=== PATIENT | female | born 2000 | race Caucasian/White ===

== ENCOUNTER 2025-06-26 18:54 | Emergency (ER) | payer MEDICAID ==
[~2025-06-26] VITALS: Ht 162.6 cm; Wt 63.0 kg
[2025-06-26 18:59] VITALS: TEMP 36.7; O2SAT 98
[2025-06-26] MEDS ORDERED: PSEU120T56 MT (23:05)
[2025-06-26] MEDS ORDERED: ISOP30DR11 LEFT EAR (23:05)
[2025-06-26] MEDS ORDERED: ALBU18HF2 IH (23:05)
[2025-06-26 23:12] VITALS: O2SAT 97
[2025-06-26 23:13] VITALS: BP 130/79; PULSE 83; RESP 18
[2025-06-26] MEDS: KETOROLAC 30MG/ML VIAL IM ONE (23:13)
== END 2025-06-26 23:18 | disposition home or self-care (01) ==
LOC: ER 18:54
DX: H61.22 Impacted cerumen, left ear (principal); R05.9 Cough, unspecified; M79.10 Myalgia, unspecified site
CPT/HCPCS: 99283; 71045; 81025; 96372; J1885